=== PATIENT | female | born 1980 | race Caucasian/White ===

== ENCOUNTER 2016-11-25 09:12 | Emergency (ER) | payer BC ==
[2016-11-25 09:19] VITALS: BMI 30.7
[2016-11-25 10:53] VITALS: BP 116/72; PULSE 87; TEMP 97.9
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
== END 2016-11-25 12:14 | disposition home or self-care (01) ==
LOC: JER 09:12
DX: Z04.1 Encounter for examination and observation following transport accident (principal); V43.52XA Car driver injured in collision with other type car in traffic accident, initial encounter; Y92.488 Other paved roadways as the place of occurrence of the external cause; Y93.89 Activity, other specified; Y99.8 Other external cause status; Z3A.23 23 weeks gestation of pregnancy
CPT/HCPCS: 99281-25

== ENCOUNTER 2018-11-09 14:38 | Emergency (ER) | payer BC, OTHER ==
[2018-11-09 14:51] VITALS: BMI 27.1
--- NOTE | 2018-11-09 14:54 | PDOC ---
Rapid Medical Evaluation Chief Complaint: Pain, Acute Time Seen by Provider: 11/09/18 14:52 Medical Evaluation: Allergies Allergy/AdvReac Type Severity Reaction Status Date / Time No Known Drug Allergies Allergy Verified 11/25/16 09:19 Vital Signs Temp Pulse Resp BP Pulse Ox 98.3 F 94 H 18 123/73 98 11/09/18 14:47 11/09/18 14:47 11/09/18 14:47 11/09/18 14:47 11/09/18 14:47 11/09/18 14:52 I have performed a brief in-person evaluation of this patient. The patient presents with a chief complaint of right flank pain x 3 days. Patient also reports fever, chills and nausea. Seen at [facility], referred to ed for further evaluation and possible iv abx. Pt has history of pyelonephritis Pertinent physical exam findings are: NAD even and unlabored breathing +right flank tenderness non tender abdomen I have ordered the following: urine preg, urinalysis, labs and iv fluids ordered The patient will proceeed to the Ed for further evaluation. Discharge Disposition - Diagnosis Flank pain - Discharge Dispostion Condition at time of disposition: Stable - Referrals - Patient Instructions - Post Discharge Activity
[2018-11-09] MEDS ORDERED: SODIUM CHLORIDE 0.9% 500 ML INFUS.BAG IV ONE (14:55)
[2018-11-09 15:16] LABS: BASO % 0.2 % (0-2.0); EOS % 0.3 % (0-4.5); HEMATOCRIT 35.6 % (32.4-45.2); HEMOGLOBIN 12.6 GM/dL (10.7-15.3); LYMPH % 11.1 % (8-40); MCH 33.2 pg (25.7-33.7); MCHC 35.4 g/dl (32.0-36.0); MEAN CELL VOLUME 93.8 fl (80-96); MEAN PLT VOLUME 7.3 fl (7.5-11.1); MONO % 8.7 % (3.8-10.2); NEUT % 79.7 % (42.8-82.8); PLATELET COUNT 281 K/MM3 (134-434); RDW 13.3 % (11.6-15.6); WHITE BLOOD COUNT 16.8 K/mm3 (4.0-10.0)
[2018-11-09 15:27] LABS: HCG,QUALITATIVE URINE Negative
[2018-11-09 15:39] LABS: URINE APPEARANCE CLEAR; URINE BILIRUBIN NEGATIVE (<2.0 mg/dL); URINE COLOR STRAW; URINE GLUCOSE (UA) NEGATIVE (NEGATIVE); URINE KETONE NEGATIVE (NEGATIVE); URINE LEUK ESTERASE 2+ (NEGATIVE); URINE NITRITE NEGATIVE (NEGATIVE); URINE PROTEIN NEGATIVE (NEGATIVE); URINE UROBILINOGEN NEGATIVE mg/dL (0.2-1.0)
[2018-11-09 15:45] LABS: EPI CELLS RARE /HPF (FEW); URINE BACTERIA MODERATE /hpf (NONE SEEN); URINE MUCUS RARE
[2018-11-09 15:52] LABS: ALBUMIN 3.3 g/dl (3.4-5.0); ALK PHOS 79 U/L (45-117); ANION GAP 7 MMOL/L (8-16); BILIRUBIN,TOTAL 0.4 mg/dL (0.2-1); BLOOD UREA NITROGEN 8 mg/dL (7-18); CALCIUM 8.3 mg/dL (8.5-10.1); CHLORIDE 98 mmol/L (98-107); CO2 27 mmol/L (21-32); CREATININE 0.8 mg/dL (0.55-1.3); GLUCOSE,RANDOM 107 mg/dL (74-106); SGOT/AST 26 U/L (15-37); SGPT/ALT 32 U/L (13-61); SODIUM 132 mmol/L (136-145); TOT PROT 7.5 g/dl (6.4-8.2)
--- NOTE | 2018-11-09 16:12 | PDOC ---
History of Present Illness - General Chief Complaint: Pain, Acute Stated Complaint: SENT BY PCP Time Seen by Provider: 11/09/18 14:52 - History of Present Illness Initial Comments: 38 year old female with PNH of pyelonephritis a few years [facility] presenting with two days of right id back pain, occasional N/V, fevers, and urinary burning. Patient states these started suddenly yesterday and she went to the urgent care clinic today who advised her to come to the ED she has not received any anti- emetics but did receive Tylenol which helped her symptoms but is currently wearing off. She is asking for water in our ED. Denies any abdominal pain, headache, chest pain, SOB, or other symptoms. 11/09/18 16:52 Past History - Past Medical History Allergies/Adverse Reactions: Allergies Allergy/AdvReac Type Severity Reaction Status Date / Time No Known Drug Allergies Allergy Verified 11/25/16 09:19 Home Medications: Ambulatory Orders Ondansetron [Zofran *Odt*] 8 mg SL BID PRN #14 od.tablet 11/09/18 Sulfamethoxazole/Trimethoprim [Bactrim Ds -] 1 tab PO BID 14 Days #28 tablet Anemia: No Asthma: No Cancer: No Cardiac Disorders: No CVA: No COPD: No CHF: No Dementia: No Diabetes: No GI Disorders: No Disorders: No HTN: No Hypercholesterolemia: No Liver Disease: No Seizures: No Thyroid Disease: No - Surgical History Abdominal Surgery: No Appendectomy: No Cardiac Surgery: No Cholecystectomy: No Lung Surgery: No Neurologic Surgery: No Orthopedic Surgery: No - Suicide/Smoking/Psychosocial Hx Smoking History: Never smoked Have you smoked in the past 12 months: No Information on smoking cessation initiated: No Hx Alcohol Use: No Drug/Substance Use Hx: No Substance Use Type: Alcohol Hx Substance Use Treatment: No Review of Systems - Review of Systems Constitutional: Yes: Chills, Diaphoresis, Fever HEENTM: No: Tearing, Recent change in vision Respiratory: No: Cough, Shortness of Breath, SOB with Exertion Cardiac (ROS): No: Chest Pain, Irregular Heart Rate ABD/GI: Yes: Nausea, Vomiting. No: Diarrhea : Yes: Burning, Dysuria Musculoskeletal: Yes: Back Pain. No: Muscle Weakness Integumentary: No: Lesions, Lumps, Pallor Neurological: No: Headache, Numbness, Paresthesia Psychiatric: No: Anxiety, Depression Hematologic/Lymphatic: No: Anemia, Blood Clots, Easy Bleeding *Physical Exam - Vital Signs Last Vital Signs Temp Pulse Resp BP Pulse Ox 98.3 F 94 H 18 123/73 98 11/09/18 14:47 11/09/18 14:47 11/09/18 14:47 11/09/18 14:47 11/09/18 14:47 - Physical Exam General Appearance: Yes: Nourished, Appropriately Dressed. No: Apparent Distress HEENT: positive: EOMI, WHIT, Normal ENT Inspection, Normal Voice Neck: positive: Trachea midline, Normal Thyroid, Supple. negative: Tender, Rigid Respiratory/Chest: positive: Lungs Clear, Normal Breath Sounds, Accessory Muscle Use. negative: Chest Tender, Respiratory Distress Cardiovascular: positive: Regular Rhythm, Regular Rate Gastrointestinal/Abdominal: positive: Normal Bowel Sounds, Flat, Soft. negative : Tender Lymphatic: negative: Adenopathy, Tenderness Musculoskeletal: positive: CVA Tenderness. negative: Normal Inspection Extremity: positive: Normal Capillary Refill, Normal Inspection, Normal Range of Motion. negative: Tender Integumentary: positive: Normal Color, Dry, Warm Neurologic: positive: Fully Oriented, Alert, Normal Mood/Affect, Normal Response , Motor Strength 5/5 Moderate Sedation - Procedure Monitoring Vital Signs: Procedure Monitoring Vital Signs Temperature 98.3 F 11/09/18 14:47 Pulse Rate 94 H 11/09/18 14:47 Respiratory Rate 18 11/09/18 14:47 Blood Pressure 123/73 11/09/18 14:47 O2 Sat by Pulse Oximetry (%) 98 11/09/18 14:47 ED Treatment Course - LABORATORY CBC & Chemistry Diagram: 11/09/18 15:00 11/09/18 15:00 - ADDITIONAL ORDERS Additional order review: Laboratory Results 11/09/18 11/09/18 15:04 15:00 Sodium 132 L Potassium 3.0 L Chloride 98 Carbon Dioxide 27 Anion Gap 7 L BUN 8 Creatinine 0.8 Creat Clearance w eGFR > 60 Random Glucose 107 H Calcium 8.3 L Total Bilirubin 0.4 AST 26 ALT 32 Alkaline Phosphatase 79 Total Protein 7.5 Albumin 3.3 L Urine Color Straw Urine Appearance Clear Urine pH 7.0 Ur Specific [place] 1.004 L Urine Protein Negative Urine Glucose (UA) Negative Urine Ketones Negative Urine Blood 2+ H Urine Nitrite Negative Urine Bilirubin Negative Urine Urobilinogen Negative Ur Leukocyte Esterase 2+ H Urine WBC (Auto) 10 Urine RBC (Auto) 2 Ur Epithelial Cells Rare Urine Bacteria Moderate Urine Mucus Rare Urine HCG, Qual Negative 11/09/18 15:00 RBC 3.80 MCV 93.8 MCHC 35.4 RDW 13.3 MPV 7.3 L Neutrophils % 79.7 Lymphocytes % 11.1 Monocytes % 8.7 Eosinophils % 0.3 Basophils % 0.2 - Medications Given in the ED: ED Medications Discontinued Medications Generic Name Dose Route Start Last Admin Trade Name Freq PRN Reason Stop Dose Admin Sodium Chloride 1,000 ml 11/09/18 14:55 11/09/18 15:41 Normal Saline - IV 11/09/18 14:56 1,000 ml ONCE ONE Administration Medical Decision Making - Medical Decision Making 38 year old female with PMH of pyelonephritis presenting with urinary symptoms, mid right back pain, and fever at home (although all vitals stable on admission in the setting of previous Tylenol use) but repeat vitals significant for fever. This is most concerning for pyelopnephritis. Denies discharge but does have malodorous urine. Patient is non- with WBC 16.8, and UTI on UA. Patient was given two liters of IV NS, toradol 15 IV, Zofran 4 IV, and Levaquin 750 IV and able to tolerate PO. Will DC with Bactrim DS BID for 14 days and zofran with strict return precautions and follow up instructions. 11/09/18 17:12 *DC/Admit/Observation/Transfer Diagnosis at time of Disposition: Flank pain - Discharge Dispostion Disposition: HOME Condition at time of disposition: Stable - Prescriptions Prescriptions: Ondansetron [Zofran *Odt*] 8 mg SL BID PRN #14 od.tablet PRN Reason: Nausea And/Or Vomiting Sulfamethoxazole/Trimethoprim [Bactrim Ds -] 1 tab PO BID 14 Days #28 tablet - Referrals Referrals: Gale Cannon MD [Primary Care Provider] - - Patient Instructions Printed Discharge Instructions: DI for Kidney Infection Additional Instructions: Please take the antibiotics twice a days for 14 days. Use the Zofran medication under the tongue for nausea or vomiting up to twice a day. Use Tylenol or Motrin every 4-6 hours for the fever or pain. - Post Discharge Activity
--- NOTE | 2018-11-09 16:25 | PDOC ---
Attending Attestation - Resident Resident Name: Jaja Patinorosannekiko - ED Attending Attestation I have performed the following: I have examined & evaluated the patient, The case was reviewed & discussed with the resident, I agree w/resident's findings & plan, Exceptions are as noted - HPI HPI: 11/09/18 16:24 38 yo female sent by [facility] for concern for pyelonephritis -not preg -temp now =101.8 -pt vomiting 11/09/18 16:35 - Physicial Exam PE: 11/09/18 16:36 38 yo female p/w flank pain,fever and chills head ncat neck supple lungs cta b/l cvs tachycardia abd no rebound,no guarding ext no edema skin warm and dry ++flank pain neuro axox3,ambulatory psych appropriate - Medical Decision Making 11/09/18 16:41 pt sent from [facility] for pyelo -leukocytosis, UTI -pt recieved IVF,zofran,antibiotics ,pain control 11/09/18 16:47 she has had a h/o pyelo in the past -will re assess and see if she can be sent home with po meds,otherwise will admit
[2018-11-09] MEDS ORDERED: ONDANSETRON *ODT* 4 MG TABLET SL ONE (16:30)
[2018-11-09] MEDS ORDERED: KETOROLAC TROMETHAMINE 15 MG/ML VIAL IVPUSH ONE (16:30)
[2018-11-09] MEDS ORDERED: SULFAMETHOXAZOLE/TRIMETHOPRIM 800MG/160MG D.S. TABLET ONE (16:34)
[2018-11-09] MEDS ORDERED: ONDANSETRON 4 MG/2 ML VIAL ONE ×2 (16:34→16:35)
[2018-11-09] MEDS ORDERED: KETOROLAC TROMETHAMINE 15 MG/ML VIAL ONE (16:34)
[2018-11-09 16:51] VITALS: BP 132/80; PULSE 104; TEMP 101.4
[2018-11-09] MEDS ORDERED: POTASSIUM CHLORIDE ORAL LIQUID 20 MEQ/15 ML PO ONE (17:15)
[2018-11-09] MEDS ORDERED: POTASSIUM CHLORIDE ORAL LIQUID 20 MEQ/15 ML ONE (18:00)
== END 2018-11-09 19:18 | disposition home or self-care (01) ==
LOC: JER 14:38
PROC: 3E03329 Introduction of Other Anti-infective into Peripheral Vein, Percutaneous Approach (ICD-10-PCS; principal; 2018-11-09)
PROC: 3E0333Z Introduction of Anti-inflammatory into Peripheral Vein, Percutaneous Approach (ICD-10-PCS; 2018-11-09)
DX: N39.0 Urinary tract infection, site not specified (principal); D72.829 Elevated white blood cell count, unspecified
CPT/HCPCS: 36415; 80053; 81003; 81015; 84703; 85025; 87086; 87186; 99282-25; Q0162